=== PATIENT | female | born 1965 | race Caucasian/White ===

== ENCOUNTER → 2017-04-21 | Outpatient (CLI) | payer BC ==
--- NOTE | 2017-04-22 11:23 | MM ---
Reason for exam: screening (asymptomatic). Last mammogram was performed 2 years and 5 months ago. History: Patient is postmenopausal. Physical Findings: A clinical breast exam by your physician is recommended on an annual basis and results should be correlated with mammographic findings. MG Screening Mammo w CAD Bilateral CC and MLO view(s) were taken. Prior study comparison: November 19, 2014, bilateral MG screening mammo w CAD. June 13, 2013, bilateral digital screening mammo w/CAD. The breast tissue is heterogeneously dense. This may lower the sensitivity of mammography. There is no discrete abnormality. ASSESSMENT: Negative, BI-RAD 1 RECOMMENDATION: Routine screening mammogram of both breasts in 1 year.
== END | disposition home or self-care (01) ==
LOC: RADMAMWWP 07:46
PROVIDERS: ATTEND Obstetrics & Gynecology
DX: Z12.31 Encounter for screening mammogram for malignant neoplasm of breast (principal)
CPT/HCPCS: 77067

== ENCOUNTER → 2019-01-02 | Outpatient (CLI) | payer BC ==
--- NOTE | 2019-01-04 10:56 | MM ---
Reason for exam: screening (asymptomatic). Last mammogram was performed 1 year and 8 months ago. History: Patient is postmenopausal. Physical Findings: A clinical breast exam by your physician is recommended on an annual basis and results should be correlated with mammographic findings. MG Screening Mammo w CAD Bilateral CC and MLO view(s) were taken. Prior study comparison: April 21, 2017, bilateral MG screening mammo w CAD. November 19, 2014, bilateral MG screening mammo w CAD. The breast tissue is heterogeneously dense. This may lower the sensitivity of mammography. No significant changes when compared with prior studies. ASSESSMENT: Negative, BI-RAD 1 RECOMMENDATION: Routine screening mammogram of both breasts in 1 year.
== END | disposition home or self-care (01) ==
LOC: RADMAMWWP 08:21
PROVIDERS: ATTEND Obstetrics & Gynecology
DX: Z12.31 Encounter for screening mammogram for malignant neoplasm of breast (principal)
CPT/HCPCS: 77067

== ENCOUNTER → 2020-08-07 | Outpatient (CLI) | payer BC ==
--- NOTE | 2020-08-08 13:48 | MM ---
Reason for exam: screening (asymptomatic). Last mammogram was performed 1 year and 7 months ago. History: Patient is postmenopausal. Physical Findings: A clinical breast exam by your physician is recommended on an annual basis and results should be correlated with mammographic findings. MG Screening Mammo w CAD Bilateral CC and MLO view(s) were taken. Prior study comparison: January 02, 2019, bilateral MG screening mammo w CAD. April 21, 2017, bilateral MG screening mammo w CAD. The breast tissue is heterogeneously dense. This may lower the sensitivity of mammography. No significant changes when compared with prior studies. ASSESSMENT: Benign, BI-RAD 2 RECOMMENDATION: Routine screening mammogram of both breasts in 1 year.
== END | disposition home or self-care (01) ==
LOC: RADMAMWWP 15:15
PROVIDERS: ATTEND Obstetrics & Gynecology
DX: Z12.31 Encounter for screening mammogram for malignant neoplasm of breast (principal); Z78.0 Asymptomatic menopausal state
CPT/HCPCS: 77067

== ENCOUNTER → 2020-12-12 | Outpatient (CLI) | payer BC ==
--- NOTE | 2020-12-12 08:52 | FL ---
EXAMINATION TYPE: FL barium swallow DATE OF EXAM: 12/12/2020 CLINICAL INDICATION: None COMPARISON: None Total Fluoroscopy Time: 2 minutes 14 seconds Total images: 62 FINDINGS: The swallowing mechanism is normal. On the prone thin barium swallowing, there is mild hypertrophy of the cricopharyngeus noted. No obstruction at this level. The hypopharyngeal anatomy is otherwise michelle ntained. There is a recurrent small hiatal hernia which enlarges slightly with Valsalva. A couple centimeters above the hiatal hernia at the level of the distal esophagus, there is a short segment abnormal fixed narrowing. The remainder of the esophagus shows no mucosal lesion or suspicious filling defect. Ther e is normal motility. A combination of Valsalva and rightward turning maneuver results in severe gastroesophageal reflux ne annamaria to the thoracic inlet. IMPRESSION: 1. Moderate grade short segment stricture distal esophagus. This could represent a postinflammatory s tricture from recurrent gastroesophageal reflux. Neoplasm needs to be excluded. 2. Recurrent small hiatal hernia and severe gastroesophageal reflux. 3. Mild CP hypertrophy.
== END | disposition home or self-care (01) ==
LOC: RADUSWWP 07:47
PROVIDERS: ATTEND Surgery
DX: K21.9 Gastro-esophageal reflux disease without esophagitis (principal); K44.9 Diaphragmatic hernia without obstruction or gangrene; J39.2 Other diseases of pharynx
CPT/HCPCS: 74220

== ENCOUNTER 2020-12-20 09:35 | Day surgery (SDC) | payer BC ==
[2020-12-18 12:56] VITALS: BMI 29.2
[~2020-12-20 09:35] MED LIST: LACTATED RINGERS 1,000 ML IV SCH
[2020-12-20] MEDS ORDERED: LACTATED RINGERS 1,000 ML IV ONE (09:51)
[2020-12-20 09:54] VITALS: TEMP 97.8
[2020-12-20] MEDS ORDERED: PROPOFOL 10 MG/ML 20 ML VIAL IV ONE (10:40)
--- NOTE | 2020-12-20 10:46 | P.GSHP ---
History of Present Illness H&P Date: 12/20/20 Chief Complaint: GERD, dysphagia This a 55-year-old female who presents today for EGD. She's had issues with GERD and dysphagia. Past Medical History Past Medical History: No Reported History Additional Past Medical History / Comment(s): HEART BURN AND SOMETIMES FEELS LIKE FOOD IS GETTING STUCK History of Any Multi-Drug Resistant Organisms: None Reported Past Surgical History: Hernia Repair Past Anesthesia/Blood Transfusion Reactions: No Reported Reaction Smoking Status: Former smoker - Past Family History Brother(s) Family Medical History: Cancer Medications and Allergies Home Medications Medication Instructions Recorded Confirmed Type No Known Home Medications 11/02/14 12/18/20 History Allergies Allergy/AdvReac Type Severity Reaction Status Date / Time No Known Allergies Allergy Verified 12/18/20 12:41 Surgical - Exam Vital Signs Temp Pulse Resp BP Pulse Ox 97.8 F 80 18 158/78 100 12/20/20 09:53 12/20/20 09:53 12/20/20 09:53 12/20/20 09:53 12/20/20 09:53 - General well developed, well nourished, no distress - Eyes PERRL - ENT normal pinna - Neck no masses - Respiratory normal expansion - Cardiovascular Rhythm: regular - Abdomen Abdomen: soft, non tender Assessment and Plan Assessment: GERD, dysphagia. We'll perform EGD.
--- NOTE | 2020-12-20 10:55 | P.OP ---
Date of Procedure: 12/20/20 Preoperative Diagnosis: GERD Postoperative Diagnosis: Recurrent hiatal hernia Procedure(s) Performed: EGD Anesthesia: MAC Surgeon: Darin Adrian Pathology: other (Esophagus) Condition: stable Disposition: PACU Description of Procedure: Patient's placed on the endoscopy table in the lateral position. She received IV sedation. The gastroscope placed oropharynx passed in the esophagus into the stomach. Scope was placed through the pylorus. The first and second portion of the duodenum appeared normal. The scope was then retroflexed and the remainder of the stomach appeared normal. There was a moderate size hiatal hernia.. GE junction was at 37 cm. The distal esophagus inflamed. A biopsies performed. The proximal esophagus appeared normal. Scope was withdrawn for patient.
[2020-12-20 11:06] VITALS: RESP 16
[2020-12-20 11:28] VITALS: BP 129/82; PULSE 71
== END 2020-12-20 11:43 | disposition home or self-care (01) ==
LOC: ORWHC2ENDO 09:35
PROVIDERS: ATTEND Surgery
DX: K21.00 Gastro-esophageal reflux disease with esophagitis, without bleeding (principal); K44.9 Diaphragmatic hernia without obstruction or gangrene; Z87.891 Personal history of nicotine dependence; Z80.9 Family history of malignant neoplasm, unspecified
CPT/HCPCS: 88305; 88312; 43239; J2704

== ENCOUNTER → 2021-09-10 | Outpatient (CLI) | payer BC ==
--- NOTE | 2021-09-11 11:13 | MM ---
Reason for Exam: Screening (asymptomatic). Last mammogram was performed 1 year(s) and 1 month(s) ago. Patient History: Menarche at age 13. First Full-Term at age 26. Postmenopausal. Risk Values: Kay 5 year model risk: 1.3%. NCI Lifetime model risk: 8.0%. Prior Study Comparison: 04/21/2017 Bilateral Screening Mammogram, [facility]. 01/02/2019 Bilateral Screening Mammogram, [facility]. 08/07/2020 Bilateral Screening Mammogram, [facility]. Tissue Density: The breast tissue is heterogeneously dense. This may lower the sensitivity of mammography. Findings: Analyzed By CAD. Benign-appearing bilateral axillary lymph nodes are redemonstrated. There is no suspicious group of microcalcifications or new suspicious mass in either breast. Overall Assessment: Negative, BI-RAD 1 Management: Screening Mammogram of both breasts in 1 year. A clinical breast exam by your physician is recommended on an annual basis and results should be correlated with mammographic findings. Electronically signed and approved by: Ralf Smiley M.D.
== END | disposition home or self-care (01) ==
LOC: RADMAMWWP 07:51
PROVIDERS: ATTEND Obstetrics & Gynecology
DX: Z12.31 Encounter for screening mammogram for malignant neoplasm of breast (principal); Z78.0 Asymptomatic menopausal state
CPT/HCPCS: 77067

== ENCOUNTER → 2021-09-10 | Outpatient (CLI) | payer BC ==
[2021-09-10 15:46] LABS: Basophils # (A) 0.02 X 10*3/uL (0.00-0.10); Basophils % (A) 0.6 %; Eosinophils # (A) 0.13 X 10*3/uL (0.04-0.35); Eosinophils % (A) 3.7 %; HCT 43.4 % (37.2-46.3); HGB 13.5 g/dL (12.0-15.0); Immature Grans, Automated 0.3 %; Lymphocytes # (A) 1.39 X 10*3/uL (0.90-5.00); Lymphocytes % (A) 39.5 %; MCH 29.2 pg (27.0-32.0); MCHC 31.1 g/dL (32.0-37.0); MCV 93.9 fL (80.0-97.0); Mean Platelet Volume 10.3 fL (9.5-12.2); Monocytes # (A) 0.35 X 10*3/uL (0.20-1.00); Monocytes % (A) 9.9 %; NRBC Per 100 WBC 0 /100 WBCS (0.0-0.0); Neutrophils # (A) 1.62 X 10*3/uL (1.80-7.70); Platelet Count 242 X 10*3/uL (140-440); RBC 4.62 X 10*6/uL (4.10-5.20); RDW 13.2 % (11.5-14.5); WBC 3.52 X 10*3/uL (4.50-10.00)
[2021-09-10 17:27] LABS: Cardiolipin Ab IgG Interp NEGATIVE (NEGATIVE); Cardiolipin Ab IgM Interp NEGATIVE (NEGATIVE); Cardiolipin IgA Antibody <2.0 U/mL; Cardiolipin IgM Antibody 2.5 U/mL
[2021-09-11 09:41] LABS: Protein S Antigen 103 % (50 - 140)
[2021-09-11 10:25] LABS: APTT 42 Sec(s) (<43); Dilute Russell Viper Venom 38 Sec(s) (<44)
[2021-09-12 09:25] LABS: Anti-Thrombin III Activity 96 % (79-109)
[2021-09-12 09:32] LABS: Protein C (Activity) >150 % (71-138)
== END | disposition home or self-care (01) ==
LOC: LABWHC1 08:07
PROVIDERS: ATTEND Family Medicine
DX: Z82.3 Family history of stroke (principal)
CPT/HCPCS: 36415; 81241; 81291; 85025; 85300; 85303; 85305; 85613; 85730; 86147

== ENCOUNTER → 2022-12-16 | Outpatient (CLI) | payer BC ==
--- NOTE | 2022-12-17 08:21 | MM ---
Reason for Exam: Screening (asymptomatic). Last mammogram was performed 1 year(s) and 3 month(s) ago. Patient History: Menarche at age 13. First Full-Term at age 26. Postmenopausal. Risk Values: Kay 5 year model risk: 1.4%. NCI Lifetime model risk: 7.8%. Prior Study Comparison: 01/02/2019 Bilateral Screening Mammogram, [facility]. 08/07/2020 Bilateral Screening Mammogram, [facility]. 09/10/2021 Bilateral MG screening mammo w CAD, [facility]. Tissue Density: The breast tissue is heterogeneously dense. This may lower the sensitivity of mammography. Findings: Analyzed By CAD. There is no suspicious group of microcalcifications or new suspicious mass in either breast. Overall Assessment: Benign, BI-RAD 2 Management: Screening Mammogram of both breasts in 1 year. . Patient should continue monthly self-breast exams. A clinical breast exam by your physician is recommended on an annual basis. This exam should not preclude additional follow-up of suspicious palpable abnormalities. Note on Kay scores and lifetime risk: 1. A Kay score greater than 3% is considered moderate risk. If this is the case, consider specialist referral to assess eligibility for a risk reducing agent. 2. If overall lifetime risk for the development of breast cancer is 20% or higher, the patient may qualify for future screening with alternating mammogram and breast MRI. Electronically signed and approved by: Isak Castillo M.D. Radiologis
== END | disposition home or self-care (01) ==
LOC: RADMAMWWP 07:53
PROVIDERS: ATTEND Obstetrics & Gynecology Obstetrics
DX: Z12.31 Encounter for screening mammogram for malignant neoplasm of breast (principal); Z78.0 Asymptomatic menopausal state
CPT/HCPCS: 77067

== ENCOUNTER → 2023-04-19 | Outpatient (CLI) | payer BC ==
--- NOTE | 2023-04-19 18:03 | MR ---
EXAMINATION TYPE: MR brain and iac wo/w con DATE OF EXAM: 04/19/2023 COMPARISON: None HISTORY: Bilateral hearing loss, buzzing sounds in ears TECHNIQUE: Multiplanar, multisequence images of the brain and brainstem is performed without and with IV contras t, utilizing 8.5 mL intravenous Gadavist . FINDINGS: The T1-weighted sagittal images, the midline structures including craniovertebral junction. The ventricles, basal cisterns and sulci is within normal limits. No mass effect or shift of midline structures. There are a few tiny focal areas of abnormal increased signal intensity in the white june er of both frontal lobes. These are nonspecific findings and most likely represent ischemic lesions. Based on the diffusion-weighted imaging, there is no diffusion restriction or acute ischemic event. There is no intracranial hemorrhage. The posterior fossa including the brainstem, fourth ventricle, cerebellopontine angles and internal a uditory canals and contents are normal and symmetric without mass or pathological enhancement. There is no pathological enhancement throughout the brain parenchyma. There are marked chronic inflammatory changes in the maxillary and ethmoid air. There is marked mucos al thickening multiple mucous retention cysts or polyps.. There is mild inflammatory change in the m astoid air cells bilaterally.. IMPRESSION: 1. Normal cerebellopontine angles and internal auditory canals without mass or pathological enhanceme nt. 2. No pathological enhancement throughout the brain parenchyma. 3. No acute ischemic event. 4. pansinusitis and mastoid air cell inflammation/fluid as described above.
== END | disposition home or self-care (01) ==
LOC: RADMRIMAIN 16:21
PROVIDERS: ATTEND Otolaryngology
DX: J32.4 Chronic pansinusitis (principal); H70.893 Other mastoiditis and related conditions, bilateral; H90.3 Sensorineural hearing loss, bilateral
CPT/HCPCS: 70553; A9585

== ENCOUNTER → 2024-02-03 | Outpatient (CLI) | payer OTHER ==
--- NOTE | 2024-02-05 18:06 | BD ---
EXAMINATION TYPE: Axial Bone Density DATE OF EXAM: 02/03/2024 CLINICAL HISTORY: 58 years old Female. ICD-10 CODE: Z78.0 ASYMPTOMATIC MENOPAUSAL STA , Additional History: Height: 64.5 Weight: 176.7 FRAX RISK QUESTIONS: Alcohol (3 or more units per day): no Family History (Parent hip fracture): no Glucocorticoids (More than 3mos): no (Ex: prednisone, prednisolone, methylprednisolone, dexamethasone, and hydrocortisone). History of Fracture in Adulthood: ankle Secondary Osteoporosis: 1. Type 1 Diabetes: no 2. Hyperthyroidism: no 3. Menopause before 45: yes 4. Malnutrition: no 5. Chronic liver disease: no Rheumatoid Arthritis: no Current Tobacco Use: no RISK FACTORS HISTORY OF: Hip Fracture (Right/Left): no Spine Fracture: no History of Wrist Fracture: no When: Surgery to Spine/Hip(right/left)/Wrist (right/left): no MEDICATIONS: Thyroid Medications: no Osteoporosis Medications: no EXAM MEASUREMENTS: Bone mineral densitometry was performed using the [employer] System. Bone mineral density as measured about the Lumbar spine is: ----- L1-L4(G/cm2): 1.075 T Score Values are as follows: ----- L1: -0.9 ----- L2: -1.9 ----- L3: -0.8 ----- L4: -0.3 ----- L1-L4: -0.9 Z Score Values are as follows: ----- L1: -0.3 ----- L2: -1.2 ----- L3: -0.2 ----- L4: 0.3 ----- L1-L4: -0.2 Baseline Study Bone mineral density about the R hip (g/cm2): 0.832 Bone mineral density about the L hip (g/cm2): 0.850 T Score values are as follows: -----R Neck: -1.6 -----L Neck: -1.7 -----R Total: -1.4 -----L Total: -1.3 Z Score values are as follows: -----R Neck: -0.7 -----L Neck: -0.8 -----R Total: -0.9 -----L Total: -0.7 Baseline Study FRAX%s: The graph provided illustrates a 14.2% chance for a major osteoporotic fx and a 1.5% chance f or the hips probability for fx in 10 years time. IMPRESSION: Osteopenia (T Score between -2.5 and -1). There is slightly increased risk of fracture and the patient may be considered for treatment. Re-Screen 2-5 years. NOTE: T-SCORE=SD OF THE YOUNG ADULT MEAN. [facility], , 02/05/2024 6:03 PM
--- NOTE | 2024-02-10 12:02 | MM ---
Reason for Exam: Screening (asymptomatic). Last mammogram was performed 1 year(s) and 2 month(s) ago. Patient History: Menarche at age 13. First Full-Term at age 26. Postmenopausal. Risk Values: Kay 5 year model risk: 1.4%. NCI Lifetime model risk: 7.6%. Prior Study Comparison: 08/07/2020 Bilateral Screening Mammogram, [facility]. 09/10/2021 Bilateral MG screening mammo w CAD, [facility]. 12/16/2022 Bilateral MG screening mammo w CAD, [facility]. Tissue Density: There are scattered areas of fibroglandular density. Findings: Analyzed By CAD. Right breast: There is no suspicious group of microcalcifications or new suspicious mass. Left breast: There is no suspicious group of microcalcifications or new suspicious mass. Overall Assessment: Negative, BI-RAD 1 Management: Screening Mammogram of both breasts in [address] [facility] will attempt to contact patient to return for supplemental views and ultrasound if indicated. Patient should continue monthly self-breast exams. A clinical breast exam by your physician is recommended on an annual basis. This exam should not preclude additional follow-up of suspicious palpable abnormalities. Note on Kay scores and lifetime risk: 1. A Kay score greater than 3% is considered moderate risk. If this is the case, consider specialist referral to assess eligibility for a risk reducing agent. 2. If overall lifetime risk for the development of breast cancer is 20% or higher, the patient may qualify for future screening with alternating mammogram and breast MRI. [facility], , 02/10/2024 11:59 AM. Electronically signed and approved by: Tramaine Sierra DO
== END | disposition home or self-care (01) ==
LOC: RADBDWWP 15:30
PROVIDERS: ATTEND Family Medicine
DX: Z12.31 Encounter for screening mammogram for malignant neoplasm of breast (principal); R92.323 Mammographic fibroglandular density, bilateral breasts; M85.89 Other specified disorders of bone density and structure, multiple sites; Z78.0 Asymptomatic menopausal state
CPT/HCPCS: 77067; 77080